=== PATIENT | female | born 1975 | race African-American/Black ===

== ENCOUNTER 2017-05-02 02:27 | Inpatient (IN) ==
[2017-05-02] MEDS ORDERED: MEPERIDINE 50 MG/1 ML VIAL IV PRN (02:40)
[2017-05-02] MEDS ORDERED: BUTORPHANOL 2 MG/ML VIAL IV PRN (02:40)
[2017-05-02] MEDS ORDERED: ONDANSETRON 4 MG/2 ML VIAL IV PRN ×2 (02:40→03:37)
[2017-05-02] MEDS ORDERED: OXYTOCIN/LR 20 UNIT/1,000 ML BAG IV ONE ×2 (02:59→03:37)
[2017-05-02] MEDS ORDERED: LACTATED RINGERS 1,000 ML IV SCH (03:00)
[2017-05-02] MEDS ORDERED: LIDOCAINE 1% 50 ML VIAL ONE (03:00)
[2017-05-02 03:03] LABS: Basophils % 0.2 % (0.0-0.8); Eosinophils % 0.3 % (0.00-10.9); Hemoglobin 12.4 GM/DL (12.0-16.0); Immature Granulocytes % 0.5 %; Immature Granulocytes Absolute 0.06 #; Lymphocytes # 1.8 10*3/uL (1.4-4.0); Lymphocytes % 14.9 % (21.3-54.2); Mean Corpuscular HGB Conc 34.4 GM/DL (32-36); Mean Corpuscular Hemoglobin 29 PG (27-34); Mean Corpuscular Volume 85.1 FL (87-102); Mean Platelet Volume 11.4 FL (9.6-12.0); Monocytes # 0.7 10*3/uL (0.11-0.8); Monocytes % 5.7 % (1.7-12.7); Neutrophils # 9.5 10*3/uL (1.4-7.4); Neutrophils % 78.4 % (38.7-73.9); Platelet Count 192 T/CUMM (130-400); Red Blood Count 4.23 MC/CUMM (3.8-5.5); Red Cell Distribution Width 15.1 % (9.3-17.3); White Blood Count 12.1 T/CUMM (4-12)
[2017-05-02 03:22] LABS: Albumin 2.8 G/DL (3.4-5.0); Bilirubin,Total 0.6 MG/DL (0.2-1.0); Calcium 8.8 MG/DL (8.5-10.1); Osmolality,Calculated 274.5 MOS/KG (273-304); Potassium 3.7 MMOL/L (3.5-5.1); Total Protein 6.7 G/DL (6.4-8.3)
[2017-05-02] MEDS ORDERED: HYDROCORTISONE 2.5% RECTAL CREAM 30 GM TUBE TOP PRN (03:37)
[2017-05-02] MEDS ORDERED: LANOLIN 50% CREAM 0.3 OZ TUBE TOP PRN (03:37)
[2017-05-02] MEDS ORDERED: RHO(D) IMMUNE GLOBULIN 300 MCG SYRINGE IM ONE (03:37)
[2017-05-02] MEDS ORDERED: BISACODYL 10 MG SUPP RECTAL PRN (03:37)
[2017-05-02] MEDS ORDERED: oxyCODONE/ACETAMINOPHEN 5-325 MG TABLET PO PRN ×2 (03:37)
[2017-05-02] MEDS ORDERED: DIPH/TET/ACEL PERT BOOSTER VACCINE 0.5 ML VIAL IM ONE (03:37)
[2017-05-02] MEDS ORDERED: ACETAMINOPHEN 325 MG TABLET PO PRN (03:37)
[2017-05-02] MEDS ORDERED: WITCH HAZEL PADS 100/JAR TOP PRN (03:37)
[2017-05-02] MEDS ORDERED: BENZOCAINE 20%/MENTHOL 0.5% SPRAY 56 GM CAN TOP PRN (03:37)
[2017-05-02] MEDS ORDERED: MEASLES/MUMPS/RUBELLA VACCINE 0.5 ML VIAL SUBCUT ONE (03:37)
--- NOTE | 2017-05-02 03:41 | Operative Note ---
Date of procedure: 05/02/17 Procedure Preformed: Patient delivered a liveborn female via spontaneous vaginal delivery. Baby's head was delivered in the NICHOLE position. Vacuum was applied 1 with total application time less than 30 seconds. Vacuum applied secondary to ineffective pushing via mother . the baby's nose mouth bulb suctioned the perineum. Anterior posterior shoulders followed by the body was delivered with ease. Status post internal after" was doubly clamped and cut. Cord blood was sent. Placenta was delivered spontaneously and intact with three-vessel cord. The uterus was massaged and was found to confirm a well contracted. The patient perineum was intact.. Apgars 8 and 9. Baby and mother stable. And the procedure all sponge lap counts correct 2. Surgeon / Physician: Matt Beasley Post-op diagnosis: same Findings: Liveborn female infant Apgars 8 9 Specimens: none sent Estimated blood loss: other (50 mL) Anesthesia: none Disposition: floor
[2017-05-02 03:55] LABS: Apearance,Urine CLEAR (Clear); Bacteria,Urine Occasional /HPF (Few); Bilirubin,Urine Negative (Negative); Blood, Urine Negative (Negative); Glucose,Urine (UA) Negative (Negative); Ketones,Urine 5 mg/dL (Negative); Mucus,Urine Occasional /LPF (Occasional); Nitrite,Urine Negative (Negative); Protein,Urine Negative; RBC,Urine 6 /HPF (0-4); Urine Color Yellow (Yellow); Urine Specific Gravity 1.011 (1.001-1.035); Urine Urobilinogen < 2.0 EU/DL (0.2-1.0); WBC,Urine 1 /HPF (0-6)
[2017-05-02] MEDS: IBUPROFEN 800 MG TABLET PO PRN ×3 (05:34→20:03)
[2017-05-02] MEDS: DOCUSATE SODIUM 100 MG CAPSULE PO SCH ×2 (09:00→20:04)
[2017-05-03 04:11] LABS: Basophils % 0.2 % (0.0-0.8); Eosinophils # 0.1 10*3/uL (0.0-0.87); Eosinophils % 0.9 % (0.00-10.9); Hematocrit 35.6 VOL% (35.7-47.0); Immature Granulocytes % 0.5 %; Immature Granulocytes Absolute 0.07 #; Lymphocytes # 1.8 10*3/uL (1.4-4.0); Lymphocytes % 13.1 % (21.3-54.2); Mean Corpuscular HGB Conc 33.7 GM/DL (32-36); Mean Corpuscular Hemoglobin 29 PG (27-34); Mean Corpuscular Volume 86.2 FL (87-102); Mean Platelet Volume 11.4 FL (9.6-12.0); Monocytes # 0.6 10*3/uL (0.11-0.8); Monocytes % 4.4 % (1.7-12.7); Neutrophils # 11.1 10*3/uL (1.4-7.4); Neutrophils % 80.9 % (38.7-73.9); Platelet Count 201 T/CUMM (130-400); Red Blood Count 4.13 MC/CUMM (3.8-5.5); Red Cell Distribution Width 15.2 % (9.3-17.3); White Blood Count 13.7 T/CUMM (4-12)
--- NOTE | 2017-05-03 07:12 | History and Physical Update ---
History and Physical Update - Dictation Physical: refer to scanned H&P - Physical Exam Mental Status: alert and oriented Heart: regular rate and rhythm Lung: clear to auscultation Abdomen: within normal limits Vitals: within normal limits History and Physical Changes: Pt presented in active labor. Dr. Beasley on for weekend coverage.
--- NOTE | 2017-05-03 07:15 | OB/GYN Progress Note ---
Assessment and Plan (1) Vaginal delivery Status: Acute Assessment and plan: Routine care. 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 Exam SENIOR ANALYST DEVELOPER - Constitutional Vitals: Vital Signs Temp Pulse Resp BP Pulse Ox 05/03/17 04:00 97.7 F 76 18 124/78 98 05/03/17 00:00 98.1 F 90 18 127/76 98 05/02/17 21:03 97.8 F 05/02/17 20:00 97.8 F 86 18 131/81 98 05/02/17 16:00 98.3 F 77 20 114/65 99 05/02/17 11:59 97.4 F L 73 20 139/77 95 05/02/17 08:10 96.8 F L 69 18 135/68 97 05/02/17 08:00 96.8 F L 69 18 135/68 97 General appearance: normal weight, no acute distress - Head Head exam: Present: normal inspection, normocephalic - Eye Eye exam: Present: EOMI - Respiratory Respiratory exam: Present: clear to auscultation bilaterally - Cardiovascular Cardiovascular exam: Present: regular rate and rhythm - GI/Abdominal GI/Abdominal exam: Present: soft - Extremities Exam Extremities exam: Present: normal inspection - Back Exam Back exam: Present: normal inspection - Neurological Exam Neurological exam: Present: alert, oriented X3 - Psychiatric Psychiatric exam: Present: normal affect, normal mood - Skin Skin exam: Present: normal color, warm Results - Labs CBC & BMP: 05/03/17 04:05 05/02/17 02:54 Lab Results: I have reviewed the past 24 hour labs
[2017-05-03] MEDS: DOCUSATE SODIUM 100 MG CAPSULE PO SCH ×2 (09:24→21:15)
[2017-05-03] MEDS: IBUPROFEN 800 MG TABLET PO PRN (14:36)
[2017-05-04 07:28] VITALS: BP 130/74
[2017-05-04] MEDS: DOCUSATE SODIUM 100 MG CAPSULE PO SCH (16:10)
== END 2017-05-04 14:55 | disposition home or self-care (01) | DRG 775 ==
LOC: N.LDOUT 02:27 → N.LD 02:28 → N.OB 05:10
PROVIDERS: ADMIT Obstetrics & Gynecology; ATTEND Obstetrics & Gynecology